=== PATIENT | male | born 1980 | race African-American/Black ===

== ENCOUNTER → 2017-09-13 | Outpatient (CLI) | payer MEDICAID | LOC: BRMIMAGING 11:25 → EDSTATUS 11:30 | PROVIDERS: ATTEND Internal Medicine | DX: M16.0 Bilateral primary osteoarthritis of hip (principal); M19.071 Primary osteoarthritis, right ankle and foot; M19.072 Primary osteoarthritis, left ankle and foot; M79.642 Pain in left hand; M79.641 Pain in right hand | CPT/HCPCS: 73130-PO; 73521-PO; 73610-PO ==